=== PATIENT | female | born 1975 | race Caucasian/White ===

== ENCOUNTER 2019-01-27 05:26 | Inpatient (IN) | payer OTHER ==
[2019-01-26 08:23] VITALS: Ht 177.8 cm; Wt 90.9 kg
[2019-01-27] VITALS (23 sets, daily range): BP systolic 12–134; BP diastolic 55–82; PULSE 74–97; RESP 13–22
[~2019-01-27] VITALS: Ht 177.8 cm; Wt 90.9 kg
[2019-01-27] MEDS ORDERED: LACTATED RINGER'S 1,000 ML IV* SCH (06:00)
[2019-01-27] MEDS ORDERED: CEFAZOLIN 2 GM/50 ML (PMX) 50 ML IVPB ONE (06:00)
--- NOTE | 2019-01-27 06:40 | PREAC ---
Date/Time of Note Date/Time of Note DATE: 01/27/19 TIME: 06:39 Anesthesia Eval and Record Evaluation Time Pre-Procedure Interview DATE: 01/27/19 TIME: 06:39 Age 43 Sex female NPO: 8 hrs Preoperative diagnosis L4-5, L5-S1 spinal stenosis Planned procedure Anterior lumbar interbody fusion with graft, posterior decompression and instrumented fusion L4,5, S1 Past Medical History Past Medical History: None Surgery & Anesthesia Issues No known issue Meds Anticoagulation: No Beta Mis within 24 hr: No Reason Beta Mis not given: Pt. not on B-Mis Current Medications Lactated Ringer's 1,000 ml @ 0 mls/hr Q0M IV* Last administered on 01/27/19at 06:05; Admin Dose 0 MLS/HR; Start 01/27/19 at 06:00; Stop 01/27/19 at 16:00 Meds reviewed: Yes Allergies Coded Allergies: No Known Allergy (Unverified , 01/26/19) Allergies Reviewed: Yes Labs/Studies Labs Reviewed: Reviewed by anesthesiologist test: Negative Pre-procedure Exam Last vitals Vital Signs Date Temp Pulse Resp B/P (MAP) Pulse Ox O2 O2 Flow FiO2 Time Delivery Rate 01/27/19 97.7 78 18 134/82 98 Room Air 06:01 (99) Airway: Adequate mouth opening Mallampati: Mallampati I Teeth: Normal Lung: Normal Heart: Normal ASA Physical Status ASA physical status: 1 Emergency: None Planned Anesthetic General/MAC: ETT Planned Pain Management Parenteral pain med Pre-operative Attestations Prior to commencing anesthesia and surgery, the patient was re-evaluated, there was verification of: *The patient's identity *The results of appropriate recent lab work and preoperative vital signs *The above evaluation not changing prior to induction *Anesthetic plan, risk benefits, alternative and complications discussed with patient/family; questions answered; patient/family understands, accepts and wish es to proceed. GOLD CORREIA MD Jan 27, 2019 06:40
[2019-01-27] MEDS ORDERED: THROMBIN (BOVINE) 5,000 UNIT VIAL TP ONE (06:42)
[2019-01-27] MEDS ORDERED: BUPIVACAINE 0.5%/EPI (SDV) 30 ML INJ ONE (06:42)
[2019-01-27] MEDS ORDERED: CEFAZOLIN 1 GM INJ ONE ×3 (06:42→08:29)
[2019-01-27] MEDS ORDERED: GELATIN SIZE 100 SPONGE ONE (06:42)
[2019-01-27] MEDS ORDERED: SURGIFOAM POWDER 1 GM KIT ONE (06:42)
[2019-01-27] MEDS ORDERED: HEPARIN 1000 UNITS/ML 10 ML INJ ONE (06:43)
--- NOTE | 2019-01-27 06:57 | HPN ---
Date/Time of Note Date/Time of Note DATE: 01/27/19 TIME: 06:56 Interval H&P Admission Note Pt. seen H&P reviewed: No system changes CHLOE COYLE MD Jan 27, 2019 06:57
[2019-01-27] MEDS ORDERED: DIPHENHYDRAMINE 50 MG INJ IV PRN (07:00)
[2019-01-27] MEDS ORDERED: NALOXONE (0.4 MG/ML) INJ IV PRN (07:00)
[2019-01-27] MEDS ORDERED: CEFAZOLIN 1 GM/50 ML (PMX) 50 ML IVPB SCH (07:00)
[2019-01-27] MEDS ORDERED: AL HYDROX/MG HYDROX/SIMETH 30 ML CUP PO PRN (07:00)
[2019-01-27] MEDS ORDERED: ACETAMINOPHEN 325 MG TAB PO PRN (07:00)
[2019-01-27] MEDS ORDERED: HYDROmorphONE 0.2 MG/ML PCA IV SCH (07:00)
[2019-01-27] MEDS ORDERED: HYDROCODONE/APAP (10/325) TAB PO PRN (07:00)
[2019-01-27] MEDS ORDERED: DIPHENHYDRAMINE 25 MG CAP PO PRN (07:00)
[2019-01-27] MEDS ORDERED: HYDROmorphONE 0.5 MG/0.5 ML SYG IV PRN (07:00)
[2019-01-27] MEDS ORDERED: CEPASTAT LOZENGE MT PRN (07:00)
[2019-01-27] MEDS ORDERED: BISACODYL 10 MG SUPP PR PRN (07:00)
[2019-01-27] MEDS ORDERED: LIDOCAINE 2% (SDV) 5 ML INJ ONE (07:04)
[2019-01-27] MEDS ORDERED: NEOSTIGMINE 3 MG/3 ML SYRINGE ONE ×2 (07:04→07:58)
[2019-01-27] MEDS ORDERED: PROPOFOL 20 ML ONE (07:04)
[2019-01-27] MEDS ORDERED: GLYCOPYRROLATE 0.4 MG INJ ONE ×3 (07:04→07:58)
[2019-01-27] MEDS ORDERED: MEPERIDINE 100 MG INJ ONE (07:04)
[2019-01-27] MEDS ORDERED: SUCCINYLCHOLINE CHLORIDE 100 MG/5 ML SYG IV ONE (07:04)
[2019-01-27] MEDS ORDERED: ROCURONIUM 50 MG INJ ONE ×2 (07:04→07:57)
[2019-01-27] MEDS ORDERED: hydrALAzine 20 MG INJ ONE (07:41)
[2019-01-27] MEDS ORDERED: METOCLOPRAMIDE 10 MG INJ ONE (07:58)
[2019-01-27] MEDS ORDERED: ONDANSETRON 4 MG INJ ONE (07:58)
--- NOTE | 2019-01-27 09:17 | SIPON ---
Date/Time of Note Date/Time of Note DATE: 01/27/19 TIME: 09:16 Operative Report Preoperative Diagnosis Lumbar disc disease and stenosis Postoperative Diagnosis Lumbar disc disease and stenosis Operation/Procedure Performed L4-5 and L5-S1 fusion Surgeon see signature line metal forger's assistant Bella Gallegos Anesthesia: general Estimated blood loss: 150 - 200 ml's Transfusion Required none Specimen Disc Grafts/Implants Cage and screws Complications none CHLOE COYLE MD Jan 27, 2019 09:17
--- NOTE | 2019-01-27 09:48 | OPR ---
DATE OF OPERATION: 01/27/2019 PREOPERATIVE DIAGNOSES: L4-L5, L5-S1 disk disease with listhesis, stenosis and radiculopathy. POSTOPERATIVE DIAGNOSES: L4-L5, L5-S1 disk disease with listhesis, stenosis and radiculopathy. PROCEDURES PERFORMED: 1. Anterior lumbar interbody fusion at L4-L5 and L5-S1. 2. Placement of intervertebral mechanical device at L4-L5 and L5-S1. 3. Placement of anterior plate at L4-L5 and L5-S1 with instrumentation. 4. Use of allograft. 5. Use of C-arm fluoroscopy for the procedure without radiologist present. 6. Intraoperative neuromonitoring. IMPLANTS: 1. Renovis Tesera 13 x 38 x 30 mm, 12-degree lordosis at L5-S1 and 7-degree lordosis at L4-L5 with 25 mm screws and plate. 2. Biosphere. 3. NuShield. CO-SURGEON: Grant Gallegos M.D. SECOND TECHNOLOGY DEVELOPMENT INTERN: Bella Lebron PA-C. NEED FOR CO-SURGEON: A co-surgeon is required in order to provide the anterior vascular access to the spine, which is the standard of care. FINDINGS: Neuromonitoring at start of the case revealed left L4 amplitude down 30%, bilateral L5 down 40%, left S1 down 40%, the end the case, nerve signals returned to normal. Disc disease and stenosis was seen at L4-5 and L5-S1 with instability. ESTIMATED BLOOD LOSS: 150 mL. DRAINS: None. SPECIMENS: L4-L5 and L5-S1 disk. COMPLICATIONS OF PROCEDURES: None. ANESTHESIOLOGIST: Dr. Jackson. TYPE OF ANESTHESIA: General. INDICATIONS FOR PROCEDURE: A 43-year-old female with back and lower extremity pain in setting of disk disease, stenosis and instability. She failed nonoperative measures, therefore I recommended that she undergo the above procedure. Preoperatively, we discussed risks, benefits, and alternatives. She understood and wished to proceed. DESCRIPTION OF PROCEDURE IN DETAIL: The patient was identified in the preoperative holding area, given Ancef antibiotic, taken to the operating room, where she was successfully placed under general anesthesia. Neuromonitoring leads were placed. Sequential compressive devices were applied. Whaley catheter was introduced. Arterial line was placed. Remote intraoperative neuromonitoring was performed by Dr. Marinelli from 6:43 until 9:30 to include SSEP, MEP, and EMG performed by [facility] for this stage. The patient was in the operative table in supine position. All bony prominences were well padded. The abdomen was prepped, draped in usual sterile fashion. Dr. Gallegos performed an anterior left-sided retroperitoneal approach to the spine. He will dictate the approach. Once he had identified the spine, a bent spinal needle was placed to confirm the correct levels. Next, I performed a radical diskectomy at the L4-L5 level. The disk was removed. The endplates were prepared. Various trials were placed. I then took the appropriate graft height, within which I placed allograft and I impacted the titanium intervertebral mechanical device into the L4-L5 level to complete the anterior fusion at L4-L5. I then placed screws and an anterior plate at the L4-L5 level to complete the anterior instrumentation. I then turned my attention to the L5-S1 level. Similarly here, a radical diskectomy was performed. Endplates were prepared. Various trials were placed and I chose the appropriate graft height. I then took the titanium cage within which I placed allograft and I impacted intervertebral mechanical device into the L5-S1 level to complete the anterior lumbar interbody fusion at this level. I then placed the appropriate size plate and screws anteriorly. Once all the hardware was in place, I took AP and lateral images and I was happy with the placement of the hardware and alignment of the spine. The wound was irrigated and a NuShield implant was placed anteriorly. Dr. Gallegos then proceeded to close the wound in layers, and he will dictate the closure separately. At the end of the case four quadrant abdominal films were taken to confirm that there was no retained foreign bodies. There were no apparent complications during stage the patient will be transferred into prone position for stage II, which will be dictated separately. Dictated By: CHLOE COYLE MD BB/DELFINA Conf#: [id number] DID#: [id number] CC: CHLOE COYLE MD; JODIE SAM MD;*EndCC* MTDD
--- NOTE | 2019-01-27 10:12 | OPR ---
DATE OF OPERATION: 01/27/2019 PREOPERATIVE DIAGNOSIS: Degenerative disk disease, lumbosacral spine. POSTOPERATIVE DIAGNOSIS: Degenerative disk disease, lumbosacral spine. OPERATIONS PERFORMED: 1. Anterior retroperitoneal exposure interbody fusion L4-L5. 2. Anterior retroperitoneal exposure, interbody fusion, L5-S1. 3. Repair of left iliac vein. 4. Ligation of left iliolumbar vein. 5. Mobilization of the aorta and vena cava to the right. ENTRY REP/CO-SURGEON: Dr. Coyle. ESTIMATED BLOOD LOSS: 150 mL. ANESTHESIA: General. INFORMED CONSENT: Risks, benefits, complications, alternative therapies, high-risk nature of the ope ration fully explained to the patient and the family consent obtained. Risks and benefits that were explained to the patient and the family included but not limited to bleeding, infection, damage to bubba wel, damage to ureter, wound infection, wound dehiscence, deep vein thrombosis, pulmonary embolism, l oss of limb, loss of life, high-risk nature of the operation fully explained and stressed to the shreya ent. All questions answered. OPERATIVE TECHNIQUE: The patient was placed in supine position, prepped and draped in usual sterile fashion. Time-out was called, antibiotic was given. I made a 10 cm incision midline from the umbili cus down to the xiphoid process. Incision was taken down to subcutaneous tissue, which was then open ed using electrocautery. Left anterior rectus sheath was opened slightly to the left side of the mid line. Left rectus muscle was dissected superiorly and inferiorly. Left posterior rectus sheath was incised superiorly about 5 cm. I then dissected the retroperitoneal space. Bookwalter retractor was placed retracting the bowel contents to the right, left rectus muscle to the left. I dissected the left common iliac artery and vein, external iliac artery and vein, and the left iliolumbar vein was l igated using 2-0 silk tie and titanium clips. The lymphatics were all ligated using titanium clips. The middle sacral vessels were ligated using titanium clips. There was a small laceration at the ba se of the vessel in the left common iliac vein, which was repaired using a pursestring 6-0 Prolene. Exposure for L4-L5 and L5-S1 was obtained by retracting the left common iliac artery and vein, vena c dionna and aorta to the right side. We proceeded with the diskectomy and placement of the new cage. Af ter all the x-rays were satisfactory, read by Dr. Coyle, needle count and sponge count was correc t. The wound was irrigated using antibiotic solution. No evidence of any bleeding was noted. There was good pulsation in the left common and external iliac artery. The vein was soft. The posterior rectus sheath was closed using 0 Vicryl suture in running fashion. Anterior rectus sheath was irriga arias again and closed in two layers of #1 Vicryl suture in running fashion, 2-0 Vicryl suture for runn ing subcuticular skin closure. The patient tolerated procedure well. Dictated By: JESUS ALBERTO ADAMSON MD FM/NTS Conf#: [id number] DID#: [id number] CC: JODIE SAM MD; CHLOE COYLE MD;*End*
[2019-01-27] MEDS ORDERED: LABETALOL HCL 20MG INJ ONE (10:38)
[2019-01-27] MEDS ORDERED: HYDROmorphONE 1 MG/5 ML IV SYRINGE IV PRN ×2 (12:00)
[2019-01-27] MEDS ORDERED: ONDANSETRON 4 MG INJ IV PRN (12:00)
[2019-01-27] MEDS ORDERED: FENTAnyl 50 MCG/ML VIAL ONE (12:03)
[2019-01-27] MEDS: HYDROmorphONE 0.2 MG/ML PCA IV SCH ×2 (12:11→17:56)
[2019-01-27] MEDS: FENTAnyl 50 MCG/ML VIAL IV PRN ×2 (12:16→12:34)
[2019-01-27] MEDS: DOCUSATE SODIUM 100 MG CAP PO SCH ×2 (12:16→20:39)
--- NOTE | 2019-01-27 12:19 | OPR ---
DATE OF OPERATION: 01/27/2019 PREOPERATIVE DIAGNOSIS: L4-5 and L5-S1 disk disease with instability, stenosis and radiculopathy, st atus post anterior approach. POSTOPERATIVE DIAGNOSIS: L4-5 and L5-S1 disk disease with instability, stenosis and radiculopathy, s tatus post anterior approach. PROCEDURE: 1. Pedicle screw placement at L4 bilaterally and S1 bilaterally with instrumented fusion from L4-S1. 2. Posterolateral graft, L4-5 and L5-S1. 3. Use of allograft. 4. Use of intraoperative neuromonitoring. 5. Use of C-arm fluoroscopy with interpretation without radiologist present. IMPLANTS: 1. Orthofix 6.5 x 45 mm pedicle screws at L4 and 7.5 x 40 mm screws at S1 bilaterally, 70 mm prasanth on the left and 75 mm prasanth on the right. 2. Biosphere. PRIMARY SURGEON: Ace Stroud MD STAVE GRADER: Bella Lebron PA-C NEED FOR PLATE GLASS INSTALLER HELPER: During this spinal surgical procedure, my campaign assistant was used to retract and protect the spinal nerves and dural sac. My campaign assistant also employed the suction catheters to ev acuate blood from the surgical field to improve visualization of the neural structures. The assistan t was medically necessary to facilitate the completion of the surgery in a safe and expeditious [facility] r. [facility] regulations, as well as hospital bylaws, preclude the use of non-licensed [facility] care personnel, such as operating room technicians, to perform these functions. FINDINGS: Patient had significant facet disease. Neuromonitoring at the start and at the end of thi s stage were normal. ESTIMATED BLOOD LOSS: Less than 30 mL. DRAINS: None. SPECIMENS: None. COMPLICATIONS OF PROCEDURES: None. ANESTHESIOLOGIST: Dr. Jackson. TYPE OF ANESTHESIA: General. INDICATIONS FOR PROCEDURE: This is a 43-year-old female with disk disease and instability with steno sis and radiculopathy. She failed nonoperative measures, therefore I recommended that she undergo th e above procedure. Preoperatively, we discussed risks, benefits, and alternatives. She understood a nd wished to proceed. DESCRIPTION OF PROCEDURE IN DETAIL: The patient completed stage I of the surgery, which is dictated separately. Neuromonitoring for stage II was performed by Dr. Marinelli from 9:30 to 11:20 to includ e SSEP, MEP, and EMG performed by [facility]. The patient was placed on the operative room ta ble in prone position. Stage I is dictated separately. The back was prepped, draped in usual steril e fashion. Using the sterile fluoroscope, I identified the incision site. I anesthetized skin, subc utaneous tissue with Marcaine and epinephrine. Incision was then made over the L4 and S1 pedicles bi laterally. I elected not to place a screw into L5 as her pedicle seemed somewhat small on the imagin g studies preoperatively. I passed Jamshidi needles into the pedicles of L4 and S1 bilaterally follo wed by the guidewire, followed by placement of the appropriate size pedicle screws at L4 and S1 bilat erally. Once the screws were in place, I stimulated each of the screws. There is no evidence of cor tical breach. I then placed the appropriate size rods bilaterally with set screws placed with kita kiddg per management retail intern's specification. Once this was done, I removed the extended tabs and took AP a nd lateral images and I was happy with placement of the hardware and alignment of the spine. The wou nd was then irrigated. Posterolateral gutters were prepared and I placed allograft in the posterolat eral gutters at L4-L5 and L5-S1 for posterolateral fusion L4-5 and L5-S1. Once this was done, I proc eeded to close the wound in layers. I closed the deep fascia with #1 Vicryl stitch and the subcutane ous tissue with a 2-0 Vicryl stitch. Dermabond was then applied. The patient was then awakened from anesthesia and taken to the recovery room in stable condition. Lap, sponge, and instrument counts w ere correct x2. There were no apparent complications during the procedure. The patient will be admitted to the orthopedic [facility] for routine postoperative care to include pain co ntrol, neurovascular checks, antibiotics, and physical therapy. Dictated By: ACE STROUD MD BB/NTS Conf#: [id number] DID#: [id number] CC: ACE STROUD MD;*EndCC*
--- NOTE | 2019-01-27 13:17 | CONS ---
Assessment/Plan Assessment/Plan Assessment/Plan (Daily) Post op med consult dict Healthy 43 YO female post op lumbar back surgery w/o any signifigant past med history Will follow Consultation Date/Type/Reason Admit Date/Time Jan 27, 2019 at 05:26 Date/Time of Note DATE: 01/27/19 TIME: 13:15 Past Medical History Home Meds No Active Prescriptions or Reported Meds Medications Current Medications Lactated Ringer's 1,000 ml @ 0 mls/hr Q0M IV* Last administered on 01/27/19at 06:05; Admin Dose 0 MLS/HR; Start 01/27/19 at 06:00; Stop 01/27/19 at 16:00 Potassium Chloride/Dextrose/ Sod Cl 1,000 ml @ 100 mls/hr Q10H IV ; Start 01/27/19 at 06:57 Acetaminophen/ Hydrocodone Bitart ([place] (10/325)) 1 tab Q4H PRN PO .PAIN 1-5; Start 01/27/19 at 07:00; Status Hold Acetaminophen/ Hydrocodone Bitart ([place] (10/325)) 2 tab Q4H PRN PO .PAIN 6-10; Start 01/27/19 at 07:00; Status Hold Hydromorphone HCl (Dilaudid) 0.2 mg Q1H PRN IV .BREAKTHROUGH PAIN; Start 01/27/19 at 07:00 Ondansetron HCl (Zofran Inj) 4 mg Q6H PRN IV NAUSEA/VOMITING; Start 01/27/19 at 07:00 Bisacodyl (Dulcolax Supp) 10 mg DAILY PRN OR .CONSTIPATION; Start 01/27/19 at 07:00 Docusate Sodium (Colace) 100 mg BID PO Last administered on 01/27/19at 12:16; Admin Dose 100 MG; Start 01/27/19 at 09:00 Pantoprazole (Protonix Iv) 40 mg DAILY@06 IV ; Start 01/28/19 at 06:00 Al Hydrox/Mg Hydrox/Simethicone (Mag-Al Plus) 15 ml Q6H PRN PO .CONSTIPATION/DYSPEPSIA; Start 01/27/19 at 07:00 Acetaminophen (Tylenol Tab) 650 mg Q4H PRN PO BUSTOS OR TEMP GREATER THAN 101.3F; Start 01/27/19 at 07:00 Carisoprodol (Soma) 350 mg TID PRN PO .MUSCLE SPASMS; Start 01/27/19 at 07:00 Phenol (Cepastat Lozenge) 1 lozenge PRN PRN MT .SORE THROAT; Start 01/27/19 at 07:00 Diphenhydramine HCl (Benadryl) 25 mg Q6H PRN PO .ITCHING; Start 01/27/19 at 07:00 Diphenhydramine HCl (Benadryl) 25 mg Q6H PRN IV .ITCHING; Start 01/27/19 at 07:00 Naloxone HCl (Narcan) 0.2 mg Q2M PRN IV .RR 8 BREATHS/MIN OR LESS; Start 01/27/19 at 07:00 Miscellaneous Information 1. Hold EMERGENCY MANAGER at 1,000... EMERGENCY MANAGER IV ; Start 01/27/19 at 07:00 Hydromorphone HCl (Dilaudid EMERGENCY MANAGER) EMERGENCY MANAGER to be started in PACU Q4PCA IV Last administered on 01/27/19at 12:11; Admin Dose 6 MG; Start 01/27/19 at 11:59; Stop 01/29/19 at 11:58 Hydromorphone HCl (Dilaudid) 0.2 mg PACU PRN IV MILD PAIN 1-3; Start 01/27/19 at 12:00; Stop 01/27/19 at 19:00 Hydromorphone HCl (Dilaudid) 0.4 mg PACU PRN IV MOD PAIN 4-6 Last administered on 01/27/19at 12:35; Admin Dose 0.4 MG; Start 01/27/19 at 12:00; Stop 01/27/19 at 19:00 Fentanyl (Sublimaze) 25 mcg PACU ORDER PRN IV MILD PAIN 1-3 Last administered on 01/27/19at 12:34; Admin Dose 25 MCG; Start 01/27/19 at 12:00; Stop 01/27/19 at 19:00 Ondansetron HCl (Zofran Inj) 4 mg PACU ORDER PRN IV NAUSEA/VOMITING Last administered on 01/27/19at 12:16; Admin Dose 4 MG; Start 01/27/19 at 12:00; Stop 01/27/19 at 19:00 Cefazolin Sodium 50 ml @ 100 mls/hr Q8H IVPB ; Start 01/27/19 at 15:30; Stop 01/28/19 at 07:59 Allergies: Coded Allergies: No Known Allergy (Unverified , 01/26/19) Social History Smoking Status: Never smoker Exam/Review of Systems Exam Vitals Vital Signs Date Temp Pulse Resp B/P (MAP) Pulse Ox O2 O2 Flow FiO2 Time Delivery Rate 01/27/19 98.6 11:46 01/27/19 78 18 134/82 98 Room Air 06:01 (99) Medications Medication Current Medications Lactated Ringer's 1,000 ml @ 0 mls/hr Q0M IV* Last administered on 01/27/19at 06:05; Admin Dose 0 MLS/HR; Start 01/27/19 at 06:00; Stop 01/27/19 at 16:00 Potassium Chloride/Dextrose/ Sod Cl 1,000 ml @ 100 mls/hr Q10H IV ; Start 01/27/19 at 06:57 Acetaminophen/ Hydrocodone Bitart ([place] (10/325)) 1 tab Q4H PRN PO .PAIN 1-5; Start 01/27/19 at 07:00; Status Hold Acetaminophen/ Hydrocodone Bitart ([place] (10/325)) 2 tab Q4H PRN PO .PAIN 6-10; Start 01/27/19 at 07:00; Status Hold Hydromorphone HCl (Dilaudid) 0.2 mg Q1H PRN IV .BREAKTHROUGH PAIN; Start at 07:00 Ondansetron HCl (Zofran Inj) 4 mg Q6H PRN IV NAUSEA/VOMITING; Start 01/27/19 at 07:00 Bisacodyl (Dulcolax Supp) 10 mg DAILY PRN OR .CONSTIPATION; Start 01/27/19 at 07:00 Docusate Sodium (Colace) 100 mg BID PO Last administered on 01/27/19at 12:16; Admin Dose 100 MG; Start 01/27/19 at 09:00 Pantoprazole (Protonix Iv) 40 mg DAILY@06 IV ; Start 01/28/19 at 06:00 Al Hydrox/Mg Hydrox/Simethicone (Mag-Al Plus) 15 ml Q6H PRN PO .CONSTIPATION/DYSPEPSIA; Start 01/27/19 at 07:00 Acetaminophen (Tylenol Tab) 650 mg Q4H PRN PO BUSTOS OR TEMP GREATER THAN 101.3F; Start 01/27/19 at 07:00 Carisoprodol (Soma) 350 mg TID PRN PO .MUSCLE SPASMS; Start 01/27/19 at 07:00 Phenol (Cepastat Lozenge) 1 lozenge PRN PRN MT .SORE THROAT; Start 01/27/19 at 07:00 Diphenhydramine HCl (Benadryl) 25 mg Q6H PRN PO .ITCHING; Start 01/27/19 at 07:00 Diphenhydramine HCl (Benadryl) 25 mg Q6H PRN IV .ITCHING; Start 01/27/19 at 07:00 Naloxone HCl (Narcan) 0.2 mg Q2M PRN IV .RR 8 BREATHS/MIN OR LESS; Start 01/27/19 at 07:00 Miscellaneous Information 1. Hold EMERGENCY MANAGER at 1,000... EMERGENCY MANAGER IV ; Start 01/27/19 at 07:00 Hydromorphone HCl (Dilaudid EMERGENCY MANAGER) EMERGENCY MANAGER to be started in PACU Q4PCA IV Last administered on 01/27/19at 12:11; Admin Dose 6 MG; Start 01/27/19 at 11:59; Stop 01/29/19 at 11:58 Hydromorphone HCl (Dilaudid) 0.2 mg PACU PRN IV MILD PAIN 1-3; Start 01/27/19 at 12:00; Stop 01/27/19 at 19:00 Hydromorphone HCl (Dilaudid) 0.4 mg PACU PRN IV MOD PAIN 4-6 Last administered on 01/27/19at 12:35; Admin Dose 0.4 MG; Start 01/27/19 at 12:00; Stop 01/27/19 at 19:00 Fentanyl (Sublimaze) 25 mcg PACU ORDER PRN IV MILD PAIN 1-3 Last administered on 01/27/19at 12:34; Admin Dose 25 MCG; Start 01/27/19 at 12:00; Stop 01/27/19 at 19:00 Ondansetron HCl (Zofran Inj) 4 mg PACU ORDER PRN IV NAUSEA/VOMITING Last adm inistered on 01/27/19at 12:16; Admin Dose 4 MG; Start 01/27/19 at 12:00; Stop 01/27/19 at 19:00 Cefazolin Sodium 50 ml @ 100 mls/hr Q8H IVPB ; Start 01/27/19 at 15:30; Stop 01/28/19 at 07:59 JODIE SAM MD Jan 27, 2019 13:17
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
--- NOTE | 2019-01-27 13:49 | PAC ---
Date/Time of Note Date/Time of Note DATE: 01/27/19 TIME: 13:48 Post-Anesthesia Notes Post-Anesthesia Note Last documented vital signs Vital Signs Date Temp Pulse Resp B/P (MAP) Pulse Ox O2 O2 Flow FiO2 Time Delivery Rate 01/27/19 97.5 88 18 108/57 99 Room Air 13:35 (74) Activity: WNL Respiratory function: WNL Cardiovascular function: WNL Mental status: Baseline Pain reasonably controlled: Yes Hydration appropriate: Yes Nausea/Vomiting absent: Yes GOLD CORREIA MD Jan 27, 2019 13:49
[2019-01-27] MEDS: D5W-0.45 NACL + KCL 20 MEQ 1,000 ML IV SCH ×2 (15:19→16:57)
[2019-01-27] MEDS: CEFAZOLIN 1 GM/50 ML (PMX) 50 ML IVPB SCH ×2 (15:19→23:51)
[2019-01-27] MEDS: ONDANSETRON 4 MG INJ IV PRN (18:36)
[2019-01-27] MEDS ORDERED: ALPRAZOLAM 0.5 MG TAB PO PRN (20:30)
[2019-01-27] MEDS ORDERED: ALPRAZOLAM 0.5 MG TAB PO ONE (20:30)
[2019-01-28] MEDS: CARISOPRODOL 350 MG TAB PO PRN ×2 (00:11→12:49)
[2019-01-28] MEDS: D5W-0.45 NACL + KCL 20 MEQ 1,000 ML IV SCH ×4 (01:18→22:57)
[2019-01-28] MEDS: HYDROmorphONE 0.2 MG/ML PCA IV SCH (03:36)
[2019-01-28] MEDS ORDERED: PANTOPRAZOLE 40 MG INJ IV SCH (06:00)
[2019-01-28] MEDS: ONDANSETRON 4 MG INJ IV PRN (08:17)
[2019-01-28] MEDS: DOCUSATE SODIUM 100 MG CAP PO SCH ×2 (08:19→20:57)
[2019-01-28 08:23] VITALS: BP 115/58; PULSE 82; RESP 18
[2019-01-28] MEDS: CEFAZOLIN 1 GM/50 ML (PMX) 50 ML IVPB SCH (08:25)
--- NOTE | 2019-01-28 09:36 | CONS ---
Assessment/Plan Assessment/Plan Assessment/Plan (Daily) 1. Doing well post op lumbar back surg 2. Mild nausea and sweating sec to vasovagal phenomenon 3. Labs rev Consultation Date/Type/Reason Admit Date/Time Jan 27, 2019 at 05:26 Initial Consult Date Date/Time of Note DATE: 01/28/19 TIME: 09:34 Detailed Summary Respiratory: No shortness of breath Cardiovascular: lightheadedness (after walking and a bit sweaty); No chest pain Gastrointestinal: no complaints, nausea Genitourinary: no complaints Exam/Review of Systems Exam Vitals Vital Signs Date Temp Pulse Resp B/P (MAP) Pulse Ox O2 O2 Flow FiO2 Time Delivery Rate 01/28/19 98.1 82 18 115/58 100 Nasal 08:23 (77) Cannula 01/27/19 2.0 13:15 Intake and Output 01/27/19 01/27/19 01/28/19 1515:00 23:00 07:00 IntakeIntake Total 1110 ml 830 ml 1500 ml OutputOutput Total 500 ml 800 ml 1100 ml BalanceBalance 610 ml 30 ml 400 ml Neck: No jvd Respiratory: clear to auscultation Cardiovascular: regular rate and rhythm Gastrointestinal: soft Extremities: No edema Results Result Diagram: 01/28/19 0456 01/28/19 0456 Results 24hrs Laboratory Tests Test 01/28/19 04:56 01/28/19 06:51 White Blood Count 11.0 H Red Blood Count 3.67 L Hemoglobin 10.7 L Hematocrit 33.2 L Mean Corpuscular Volume 90.5 Mean Corpuscular Hemoglobin 29.2 Mean Corpuscular Hemoglobin Concent 32.2 Red Cell Distribution Width 13.4 Platelet Count 221 Mean Platelet Volume 10.3 Immature Granulocytes % 0.300 Neutrophils % 85.4 H Lymphocytes % 7.7 L Monocytes % 6.3 Eosinophils % 0.0 Basophils % 0.3 Nucleated Red Blood Cells % 0.0 Immature Granulocytes # 0.030 Neutrophils # 9.4 H Lymphocytes # 0.9 Monocytes # 0.7 Eosinophils # 0.0 Basophils # 0.0 Nucleated Red Blood Cells # 0.0 Sodium Level 136 Potassium Level 4.3 Chloride Level 101 Carbon Dioxide Level 27 Anion Gap 8 Blood Urea Nitrogen 7 Creatinine 0.65 Est Glomerular Filtrat Rate mL/min > 60 Glucose Level 121 Calcium Level 8.1 L Magnesium Level 2.2 Lab Scanned Report REFERENCE LAB Medications Medication Current Medications Potassium Chloride/Dextrose/ Sod Cl 1,000 ml @ 100 mls/hr Q10H IV Last administered on 01/28/19at 01:18; Admin Dose 100 MLS/HR; Start 01/27/19 at 06:57 Acetaminophen/ Hydrocodone Bitart ([place] (10/325)) 1 tab Q4H PRN PO .PAIN 1-5; Start 01/27/19 at 07:00; Status Hold Acetaminophen/ Hydrocodone Bitart ([place] (10/325)) 2 tab Q4H PRN PO .PAIN 6-10; Start 01/27/19 at 07:00; Status Hold Hydromorphone HCl (Dilaudid) 0.2 mg Q1H PRN IV .BREAKTHROUGH PAIN; Start at 07:00 Ondansetron HCl (Zofran Inj) 4 mg Q6H PRN IV NAUSEA/VOMITING Last administered on 01/28/19at 08:17; Admin Dose 4 MG; Start 01/27/19 at 07:00 Bisacodyl (Dulcolax Supp) [address] .CONSTIPATION; Start 01/27/19 at 07:00 Docusate Sodium (Colace) 100 mg BID PO Last administered on 01/28/19at 08:19; Admin Dose 100 MG; Start 01/27/19 at 09:00 Pantoprazole (Protonix Iv) 40 mg DAILY@06 IV Last administered on 01/28/19at 05:06; Admin Dose 40 MG; Start 01/28/19 at 06:00 Al Hydrox/Mg Hydrox/Simethicone (Mag-Al Plus) 15 ml Q6H PRN PO .CONSTIPATION/DYSPEPSIA; Start 01/27/19 at 07:00 Acetaminophen (Tylenol Tab) 650 mg Q4H PRN PO BUSTOS OR TEMP GREATER THAN 101.3F Last administered on 01/28/19at 08:18; Admin Dose 650 MG; Start 01/27/19 at 07:00 Carisoprodol (Soma) 350 mg TID PRN PO .MUSCLE SPASMS Last administered on 01/28/19at 00:11; Admin Dose 350 MG; Start 01/27/19 at 07:00 Phenol (Cepastat Lozenge) 1 lozenge PRN PRN [place] .SORE THROAT; Start 01/27/19 at 07:00 Diphenhydramine HCl (Benadryl) 25 mg Q6H PRN PO .ITCHING; Start 01/27/19 at 07:00 Diphenhydramine HCl (Benadryl) 25 mg Q6H PRN IV .ITCHING; Start 01/27/19 at 07:00 Naloxone HCl (Narcan) 0.2 mg Q2M PRN IV .RR 8 BREATHS/MIN OR LESS; Start 01/27/19 at 07:00 Miscellaneous Information 1. Hold ANIMAL SERVICES OFFICER at 1,000... ANIMAL SERVICES OFFICER IV ; Start 01/27/19 at 07:00 Hydromorphone HCl (Dilaudid ANIMAL SERVICES OFFICER) ANIMAL SERVICES OFFICER to be started in PACU Q4PCA IV Last adm inistered on 01/28/19at 03:36; Admin Dose 6 MG; Start 01/27/19 at 11:59; Stop 01/29/19 at 11:58 Alprazolam (Xanax) 0.25 mg Q8H PRN PO ANXIETY; Start 01/27/19 at 20:30 JODIE SAM MD Jan 28, 2019 09:35
[2019-01-28] MEDS: HYDROCODONE/APAP (10/325) TAB PO PRN ×2 (11:49→19:42)
--- NOTE | 2019-01-28 12:57 | PN ---
Date/Time of Note Date/Time of Note DATE: 01/28/19 TIME: 12:56 Assessment/Plan Lines/Catheters IV Catheter Type (from Nrsg): Peripheral IV Whaley in Place (from Nrsg): Yes Assessment/Plan Assessment/Plan Patient is doing very well postoperative day 1. She has already done stairs with physical therapy. We have discontinue the URBAN ANTHROPOLOGIST as it was causing nausea. We will advance her diet as tolerated. Continue with physical therapy and pain control. Subjective 24 Hr Interval Summary Complains of back pain Exam/Review of Systems Vital Signs Vitals Vital Signs Date Temp Pulse Resp B/P (MAP) Pulse Ox O2 O2 Flow FiO2 Time Delivery Rate 01/28/19 98.1 82 18 115/58 100 Nasal 08:23 (77) Cannula 01/27/19 2.0 13:15 Intake and Output 01/27/19 01/27/19 01/28/19 1515:00 23:00 07:00 IntakeIntake Total 1110 ml 830 ml 1500 ml OutputOutput Total 500 ml 800 ml 1100 ml BalanceBalance 610 ml 30 ml 400 ml Exam Free Text/Dictation Neuro intact and pulses palpable Results Result Diagram: 01/28/19 0456 01/28/19 0456 CHLOE COYLE MD Jan 28, 2019 12:57
[2019-01-28 13:40] VITALS: BP 129/65; PULSE 83; RESP 18
[2019-01-28] MEDS ORDERED: ONDANSETRON 4 MG TAB PO PRN (14:30)
[2019-01-28 15:03] VITALS: BP 120/58; PULSE 89; RESP 18
[2019-01-28 19:10] VITALS: BP 102/59; PULSE 97; RESP 18
[2019-01-28] MEDS ORDERED: IBUPROFEN 600 MG TAB PO ONE (20:00)
[2019-01-28] MEDS ORDERED: FAMOTIDINE 20 MG INJ IV SCH (21:00)
[2019-01-29 02:00] VITALS: BP 118/57; PULSE 94; RESP 18
[2019-01-29] MEDS: HYDROCODONE/APAP (10/325) TAB PO PRN ×2 (05:48→12:38)
[2019-01-29] MEDS ORDERED: IBUPROFEN 600 MG TAB PO PRN (06:00)
[2019-01-29 07:24] VITALS: BP 118/61; PULSE 86; RESP 18
--- NOTE | 2019-01-29 08:20 | PN ---
Date/Time of Note Date/Time of Note DATE: 01/29/19 TIME: 08:17 Assessment/Plan Lines/Catheters IV Catheter Type (from Nrsg): no iv access Whaley in Place (from Nrsg): No Assessment/Plan Assessment/Plan POD #2 s/p ALIF L4-S1 doing very well stable for D/C from ortho/surgical perspective if able to void cleared by PT D/C home if able to void and cleared by Dr. Steele Subjective 24 Hr Interval Summary c/o LBP Exam/Review of Systems Vital Signs Vitals Vital Signs Date Temp Pulse Resp B/P (MAP) Pulse Ox O2 O2 Flow FiO2 Time Delivery Rate 01/29/19 97.9 86 18 118/61 97 07:24 (80) 01/28/19 Room Air 15:03 01/27/19 2.0 13:15 Intake and Output 01/28/19 01/28/19 01/29/19 1515:00 23:00 07:00 IntakeIntake Total 1410 ml 1080 ml OutputOutput Total 1200 ml 800 ml 900 ml BalanceBalance 210 ml 280 ml -900 ml Exam Free Text/Dictation AOx3 NAD incisions c/d/i, abdominal dressing removed BLE strength and sensation full and intact distal pulses 2+ bilaterally no calf TTP or cording Results Result Diagram: 01/29/19 0445 01/29/19 0445 JASMINA SHAH PA-C Jan 29, 2019 08:20
[2019-01-29] MEDS: D5W-0.45 NACL + KCL 20 MEQ 1,000 ML IV SCH (08:57)
[2019-01-29] MEDS ORDERED: ONDANSETRON 4 MG TAB PO STA (09:03)
[2019-01-29] MEDS: DOCUSATE SODIUM 100 MG CAP PO SCH (09:14)
--- NOTE | 2019-01-29 09:20 | CONS ---
Assessment/Plan Assessment/Plan Assessment/Plan (Daily) 1. Overall doing well post op lumbar back surgery 2. N & V related to pain (parenteral) meds, will give po zofran and be certain no orthostatic BP changes (check->none) 3. Labs rev Consultation Date/Type/Reason Admit Date/Time Jan 27, 2019 at 05:26 Initial Consult Date Date/Time of Note DATE: 01/29/19 TIME: 09:18 Detailed Summary Cardiovascular: lightheadedness (when walking); No chest pain, No palpitations Gastrointestinal: no complaints, other (sl nausea and dry heaving this am) Genitourinary: no complaints Musculoskeletal: back pain (mild) Exam/Review of Systems Exam Vitals Vital Signs Date Temp Pulse Resp B/P (MAP) Pulse Ox O2 O2 Flow FiO2 Time Delivery Rate 01/29/19 97.9 86 18 118/61 97 07:24 (80) 01/28/19 Room Air 15:03 01/27/19 2.0 13:15 Intake and Output 01/28/19 01/28/19 01/29/19 1515:00 23:00 07:00 IntakeIntake Total 1410 ml 1080 ml OutputOutput Total 1200 ml 800 ml 900 ml BalanceBalance 210 ml 280 ml -900 ml Neck: No jvd Respiratory: clear to auscultation Cardiovascular: regular rate and rhythm Gastrointestinal: soft Extremities: No edema, No tenderness Results Result Diagram: 01/29/195 01/29/195 Results 24hrs Laboratory Tests Test 01/29/19 04:45 White Blood Count 10.2 Red Blood Count 3.34 L Hemoglobin 9.9 L Hematocrit 30.5 L Mean Corpuscular Volume 91.3 Mean Corpuscular Hemoglobin 29.6 Mean Corpuscular Hemoglobin Concent 32.5 Red Cell Distribution Width 13.1 Platelet Count 193 Mean Platelet Volume 10.3 Immature Granulocytes % 0.800 H Neutrophils % 86.0 H Lymphocytes % 8.0 L Monocytes % 5.1 Eosinophils % 0.0 Basophils % 0.1 Nucleated Red Blood Cells % 0.0 Immature Granulocytes # 0.080 H Neutrophils # 8.8 H Lymphocytes # 0.8 Monocytes # 0.5 Eosinophils # 0.0 Basophils # 0.0 Nucleated Red Blood Cells # 0.0 Sodium Level 137 Potassium Level 3.8 Chloride Level 103 Carbon Dioxide Level 29 Anion Gap 5 Blood Urea Nitrogen 5 L Creatinine 0.59 Est Glomerular Filtrat Rate mL/min > 60 Glucose Level 117 Calcium Level 8.4 Magnesium Level 2.4 Medications Medication Current Medications Potassium Chloride/Dextrose/ Sod Cl 1,000 ml @ 100 mls/hr Q10H IV Last administered on 01/28/19 01:18; Admin Dose 100 MLS/HR; Start 01/27/19 at 06:57 Acetaminophen/ Hydrocodone Bitart ([place] (10/325)) 1 tab Q4H PRN PO .PAIN 1-5 Last administered on 01/29/19 05:48; Admin Dose 1 TAB; Start 01/27/19 at 07:00 Acetaminophen/ Hydrocodone Bitart ([place] (10/325)) 2 tab Q4H PRN PO .PAIN 6-10 Last administered on 01/28/19 15:23; Admin Dose 2 TAB; Start 01/27/19 at 07:00 Hydromorphone HCl (Dilaudid) 0.2 mg Q1H PRN IV .BREAKTHROUGH PAIN; Start 01/27/19 at 07:00 Ondansetron HCl (Zofran Inj) 4 mg Q6H PRN IV NAUSEA/VOMITING Last administered on 01/28/19 08:17; Admin Dose 4 MG; Start 01/27/19 at 07:00 Bisacodyl (Dulcolax Supp) 10 mg DAILY PRN [place] .CONSTIPATION; Start 01/27/19 at 07:00 Docusate Sodium (Colace) 100 mg BID PO Last administered on 01/29/19 09:14; Admin Dose 100 MG; Start 01/27/19 at 09:00 Al Hydrox/Mg Hydrox/Simethicone (Mag-Al Plus) 15 ml Q6H PRN PO .CONSTIPATION/DYSPEPSIA; Start 01/27/19 at 07:00 Acetaminophen (Tylenol Tab) 650 mg Q4H PRN PO BUSTOS OR TEMP GREATER THAN 101.3F Last administered on 01/28/19 08:18; Admin Dose 650 MG; Start 01/27/19 at 07:00 Carisoprodol (Soma) 350 mg TID PRN PO .MUSCLE SPASMS Last administered on 01/28/19 12:49; Admin Dose 350 MG; Start 01/27/19 at 07:00 Phenol (Cepastat Lozenge) 1 lozenge PRN PRN [place] .SORE THROAT; Start 01/27/19 at 07:00 Diphenhydramine HCl (Benadryl) 25 mg Q6H PRN PO .ITCHING; Start 01/27/19 at 07:00 Diphenhydramine HCl (Benadryl) 25 mg Q6H PRN IV .ITCHING; Start 01/27/19 at 07:00 Naloxone HCl (Narcan) 0.2 mg Q2M PRN IV .RR 8 BREATHS/MIN OR LESS; Start 01/27/19 at 07:00 Miscellaneous Information 1. Hold MOTORCYCLE SERVICE TECHNICIAN at 1,000... MOTORCYCLE SERVICE TECHNICIAN IV ; Start 01/27/19 at 07:00 Alprazolam (Xanax) 0.25 mg Q8H PRN PO ANXIETY; Start 01/27/19 at 20:30 Ondansetron HCl (Zofran Tab) 4 mg Q6H PRN PO NAUSEA AND/OR VOMITING; Start 01/28/19 at 14:30 Ibuprofen (Motrin) 600 mg Q8H PRN PO HEADACHE Last administered on 01/29/19at 05:48; Admin Dose 600 MG; Start 01/29/19 at 06:00 JODIE SAM MD Jan 29, 2019 09:20
--- NOTE | 2019-02-04 13:01 | DS ---
Date/Time of Note Date/Time of Note DATE: 02/04/19 TIME: 13:01 Discharge Summary Admission/Discharge Info Admit Date/Time Jan 27, 2019 at 05:26 Discharge Date/Time Jan 29, 2019 at 13:31 Discharge Diagnosis Status post lumbar fusion Patient Condition: Good Procedures Lumbar fusion Hospital Course Patient was admitted to the [facility] after undergoing a lumbar fusion. Her postoperative course was uncomplicated. By postoperative day 2 she was de emed stable for discharge with follow-up arranged with the undersigned Home Meds No Active Prescriptions or Reported Meds Primary Care Provider Not On Staff Doctor CHLOE COYLE MD Feb 04, 2019 13:01
== END 2019-01-29 13:31 | disposition home or self-care (01) | DRG 454 ==
LOC: REC 05:26 → MS1 12:53
PROVIDERS: ADMIT Specialist; ATTEND Specialist
PROC: 0SG00K1 Fusion of Lumbar Vertebral Joint with Nonautologous Tissue Substitute, Posterior Approach, Posterior Column, Open Approach (ICD-10-PCS; 2019-01-27)
PROC: 0ST20ZZ Resection of Lumbar Vertebral Disc, Open Approach (ICD-10-PCS; 2019-01-27)
PROC: 0SG30A0 Fusion of Lumbosacral Joint with Interbody Fusion Device, Anterior Approach, Anterior Column, Open Approach (ICD-10-PCS; 2019-01-27)
PROC: 0ST40ZZ Resection of Lumbosacral Disc, Open Approach (ICD-10-PCS; 2019-01-27)
PROC: 0SG30K1 Fusion of Lumbosacral Joint with Nonautologous Tissue Substitute, Posterior Approach, Posterior Column, Open Approach (ICD-10-PCS; 2019-01-27)
PROC: 06QD0ZZ Repair Left Common Iliac Vein, Open Approach (ICD-10-PCS; 2019-01-27)
PROC: 4A11X4G Monitoring of Peripheral Nervous Electrical Activity, Intraoperative, External Approach (ICD-10-PCS; 2019-01-27)
PROC: 0SG00A0 Fusion of Lumbar Vertebral Joint with Interbody Fusion Device, Anterior Approach, Anterior Column, Open Approach (ICD-10-PCS; principal; 2019-01-27 07:00)
DX: M48.07 Spinal stenosis, lumbosacral region (principal); I97.52 Accidental puncture and laceration of a circulatory system organ or structure during other procedure; M43.16 Spondylolisthesis, lumbar region; M43.17 Spondylolisthesis, lumbosacral region; M48.061 Spinal stenosis, lumbar region without neurogenic claudication; M51.17 Intervertebral disc disorders with radiculopathy, lumbosacral region; M51.16 Intervertebral disc disorders with radiculopathy, lumbar region; M53.2X6 Spinal instabilities, lumbar region; M53.2X7 Spinal instabilities, lumbosacral region
CPT/HCPCS: 72020; 72110; 80048; 83735; 84703; 85025; 86850; 86900; 86901; 86920; 86999; 87086; 88304; 97110; 97116; 97162; 97530; C9113; J0360; J0690; J1170; J1644; J2175; J2405; J2710; J2765; J3010; J3480; V2790